=== PATIENT | male | born 1945 | race Caucasian/White ===

== ENCOUNTER 2022-08-31 17:53 | Emergency (ER) | payer OTHER ==
[~2022-08-31] VITALS: Ht 165.1 cm; Wt 54.4 kg
[2022-08-31] MEDS ORDERED: IV NORMAL SALINE 1000 ML BAG IV ONE ×2 (18:00→19:00)
--- NOTE | 2022-08-31 18:15 | NUR ---
Pt unable to answer questions, and family's info not available.
[2022-08-31 18:19] LABS: HEMATOCRIT 33.5 % (36.7-47.1); MEAN CORPUSCULAR HEMOGLOBIN 30.6 uug (23.8-33.4); MEAN CORPUSCULAR VOLUME 97.3 fL (73.0-96.2); PLATELET COUNT (AUTO) 313 K/uL (152-348)
[2022-08-31 18:27] LABS: CARBON DIOXIDE 21 mmol/L (21-32); CREATININE 3.6 mg/dL (0.6-1.3); GLUCOSE 164 mg/dL (74-106); POTASSIUM 5.1 mmol/L (3.5-5.1)
[2022-08-31 18:42] LABS: CHLORIDE 133 mmol/L (98-107); UREA NITROGEN, BLOOD 89 mg/dL (7-18)
--- NOTE | 2022-08-31 18:45 | NUR ---
Microbiology Lab Technician assumes care: SBAR received from scrap charger Mojgan. 1st contact with patient: Patient is resting comfortably on gurney with eyes closed, still for EKG, IV line insertion, COVID swab and urine sample collection. Room 5B has no cardiac cable available, scrap charger Mojgan notified.
[2022-08-31] MEDS ORDERED: CEFTRIAXONE 1 G in IV DEXTROSE 5% 50 ML IV ONE (19:00)
--- NOTE | 2022-08-31 19:06 | NUR ---
Nursing SBAR given to chargemaster analyst Colby. Covid swab collected and handed to lab staff
[2022-08-31] MEDS ORDERED: CEFTRIAXONE /D5W 50ML IVPB **ER PYXIS IV ONE (20:10)
[2022-08-31 21:37] LABS: BILIRUBIN,DIRECT 0.1 mg/dL (0.0-0.2); BILIRUBIN,TOTAL 0.1 mg/dL (0.2-1.0)
[2022-08-31] MEDS ORDERED: PIPERACILLIN/TAZO 2.25 G in IV DEXTROSE 5% 50 ML IV SCH (21:45)
[2022-08-31] MEDS ORDERED: ONDANSETRON 4 MG/2 ML VIAL IV PRN (21:45)
[2022-08-31] MEDS ORDERED: ACETAMINOPHEN 650 MG SUPP.RECT RC PRN (21:45)
[2022-08-31] MEDS ORDERED: MORPHINE SULFATE 2 MG/1 ML DISP.SYRIN IV PRN (21:45)
[2022-08-31] MEDS ORDERED: IV DEXTROSE 5% 500 ML IV PRN (21:45)
[2022-08-31] MEDS ORDERED: ACETAMINOPHEN 325 MG TABLET PO PRN (21:45)
[2022-08-31 23:00] LABS: *BILIRUBIN,URIN NEGATIVE (NEGATIVE); *CLARITY,URINE SLIGHTLY CLOUDY (CLEAR); *COLOR,URINE YELLOW (YELLOW); *KETONES,URINE NEGATIVE (NEGATIVE); *UROBILINOGEN,URINE 0.2 E.U./dl (NORMAL); LEUKOCYTE ESTERASE ,URINE 1+ (NEGATIVE); NITRITE, URINE NEGATIVE (NEGATIVE); UGLUCOSE NEGATIVE (NEGATIVE)
[2022-08-31 23:08] LABS: *BLOOD, URINE TRACE (NEGATIVE)
[2022-08-31 23:12] LABS: RBC,URINE 0-3 /HPF (0-3); WBC,URINE 50-80 /HPF (0-3)
[2022-08-31 23:13] LABS: BACTERIA,URINE MODERATE /HPF (NONE SEEN); SQUAMOUS EPITHELIAL CELL,UR FEW /HPF (NONE SEEN); YEAST,URINE MODERATE /HPF (NONE SEEN)
--- NOTE | 2022-09-01 | NUR ---
Patient will be going to [facility] room [id number]. Call for report is . Dr Ely is the admtting MD.
--- NOTE | 2022-09-01 00:39 | NUR ---
Gave SBAR report to Hubert peguero from [facility].
--- NOTE | 2022-09-01 00:50 | NUR ---
Gave SBAR report to [facility].
--- NOTE | 2022-09-01 00:50 | NUR ---
[id number] HAS RECEIVED ER/MED-EVAL AND TX. PT REMAINS CONFUSED. PT HAS PMH OF DEMENTIA. PT CONT. WITH STABLE VS. [facility] REPORT GIVEN BY ANTHONY PEREZ. PT ALSO HAS BEEN ON RA WITH POX OF 99%. PT TAKEN VIA GUERNEY BY CURATOR OF PHOTOGRAPHY AND PRINTS TO [place] STABLE BUT GUARDED COND. GEOVANNA CRUZ
[2022-09-01] MEDS ORDERED: PANTOPRAZOLE SODIUM 40 MG VIAL IV SCH (09:00)
[2022-09-01] MEDS ORDERED: ASPIRIN 81 MG TAB.CHEW PO SCH (09:00)
[2022-09-01] MEDS ORDERED: DOCUSATE SODIUM 250 MG CAPSULE PO SCH (21:00)
== END 2022-09-01 01:00 | disposition short-term general hospital (02) ==
LOC: ER 17:53
DX: A41.89 Other specified sepsis (principal); N17.9 Acute kidney failure, unspecified; E87.0 Hyperosmolality and hypernatremia; E86.0 Dehydration; R65.20 Severe sepsis without septic shock; Z20.822 Contact with and (suspected) exposure to COVID-19; D64.9 Anemia, unspecified; Z74.01 Bed confinement status; G30.9 Alzheimer's disease, unspecified; F02.80 Dementia in other diseases classified elsewhere, unspecified severity, without behavioral disturbance, psychotic disturbance, mood disturbance, and anxiety
CPT/HCPCS: 99291; 96365; 96361; 87426; 80048; 81001; 82247; 82248; 82962; 85025; 87040 ×3; 36415; 93005; 71045; 83605 ×2; J0696; J7040 ×2; A4663; C1758